=== PATIENT | male | born 1955 | race African-American/Black ===

== ENCOUNTER 2019-01-14 17:42 | Emergency (ER) | payer MEDICAID ==
[~2019-01-14] VITALS: Ht 188 cm; Wt 87.1 kg
[2019-01-14] MEDS ORDERED: GABAPENTIN800 MG ORAL (17:51)
--- NOTE | 2019-01-14 18:11 | NUR ---
ED Nurse Note:pt. came with chronic right knee pain
--- NOTE | 2019-01-14 19:34 | Emergency Room Report ---
History of Present Illness General Chief Complaint: Lower Extremity Injury Source: Patient Present Illness HPI 63-year-old male presents to the emergency department complaining of 5 out of 10 in severity pain localized to the right knee with new onset instability. Patient reports pain is been persistent for 5 years however he states instability over the course of the last 2 days. He denies trauma or fall. Reports history of spinal cord injury and takes oxycotin regularly. pt. reports has ortho appt. next week. Denies numbness tingling or loss of sensation or gross motor movements of the extremities, incontinence of bowel or bladder. Denies CP, Palpitations, LOC, AMS, dizziness, Changes in Vision, weakness or a sudden severe headache. Allergies: Coded Allergies: No Known Allergies (Unverified , 01/14/19) Patient History Past Medical History: see triage record Past Surgical History: none Pertinent Family History: none Reviewed Nursing Documentation: PMH: Agreed; PSxH: Agreed Nursing Documentation-PMH Past Medical History: No History, Except For Hx Cardiac Problems: No - spinal cord injury (left side) Review of Systems All Other Systems: negative except mentioned in HPI Physical Exam Vital Signs Date Time Temp Pulse Resp B/P (MAP) Pulse Ox O2 Delivery O2 Flow Rate FiO2 01/14/19 17:49 98.4 72 18 136/76 97 Room Air Sp02 EP Interpretation: reviewed, normal General Appearance: no apparent distress, alert, GCS 15, non-toxic Head: normocephalic, atraumatic Eyes: bilateral eye normal inspection, bilateral eye PERRL ENT: hearing grossly normal, normal voice Neck: full range of motion Respiratory: lungs clear, normal breath sounds, speaking full sentences Cardiovascular #1: regular rate, rhythm Musculoskeletal: normal range of motion, tender - anterior and posterior right knee, mild swelling, no erythema, no significant increased laxity on exam. Neurologic: alert, oriented x3, responsive, motor strength/tone normal, sensory intact, speech normal, other - compensatory gait using cane, grossly normal Psychiatric: judgement/insight normal Skin: normal color, no rash, warm/dry, well hydrated Medical Decision Making PA Attestation Dr. Love is my supervising Physician whom patient management has been discussed with. Diagnostic Impression: Primary Impression: Knee pain, right Qualified Codes: M25.561 - Pain in right knee Additional Impression: Abnormal x-ray ER Course 63-year-old male presents to the emergency department complaining of 5 out of 10 in severity pain localized to the right knee with new onset instability. Patient reports pain is been persistent for 5 years however he states instability over the course of the last 2 days. He denies trauma or fall. Reports history of spinal cord injury and takes oxycotin regularly. pt. reports has ortho appt. next week. Denies numbness tingling or loss of sensation or gross motor movements of the extremities, incontinence of bowel or bladder. Denies CP, Palpitations, LOC, AMS, dizziness, Changes in Vision, weakness or a sudden severe headache. Ddx considered but are not limited to Fracture, dislocation, contusion, Sprain/ Strain/Spasm, Neoplastic mets. Vital signs: are WNL, pt. is afebrile H&PE are most consistent with musculoskeletal injury will perform imaging to r/ o fractures/dislocations. ORDERS: - X-ray Right knee 3 views - negative for fx, Dislocation, or significant soft tissue injury, MULTIPLE ABNORMAL CALCIFICATIONS per preliminary read in ED, and signed by DAVID Wayne, my supervising physician has reviewed, and agrees with my interpretation. ED INTERVENTIONS: --Knee Immobilizer splint applied to the Right Knee by plasma center technician. Pt. remains neurovascularly intact. --Patient is provided with crutches and instructed on their use --Past with this patient that there is abnormalities on his x-rays give him a copy and explained to him that he needs to follow-up with an nuclear weapons specialist. Patient states she has an appointment next week I discussed with this patient that he needs to inform his doctor of these findings. DISCHARGE: At this time pt. is stable for d/c to home. Will provide printed patient care instructions, and any necessary prescriptions. Care plan and follow up instructions have been discussed with the patient prior to discharge. Other X-Ray Diagnostic Results Other X-Ray Diagnostic Results : X-Ray ordered: Right Knee # of Views/Limited Vs Complete: 3 View Indication: Pain EP Interpretation: Yes DAVID Xray: Interpretation reviewed, by supervising MD, and agrees with findings. Interpretation: no dislocation, no soft tissue swelling, no fractures, other - MULTIPLE ABNORMAL CALCIFICATIONS Impression: Other - Abnormal: MULTIPLE ABNORMAL CALCIFICATIONS Electronically Signed by: Leia Wayne PA-C Last Vital Signs Date Time Temp Pulse Resp B/P (MAP) Pulse Ox O2 Delivery O2 Flow Rate FiO2 01/14/19 17:49 98.4 72 18 136/76 97 Room Air Disposition: HOME, SELF-CARE Condition: Stable Referrals: [facility],REFERRING (PCP) Patient Instructions: Knee Pain, [id number] Additional Instructions: Take all previously prescribed medications as directed. Follow up with an AUTOMOBILE MECHANIC in 3-5 days, even if your symptoms have resolved. ABNORMALITY SEEN ON KNEE X-RAY I --Please review list of primary care clinics, if you do not already have a primary care provider who can give you an Orthopedic Referral. Return sooner to ED if new symptoms occur, or current symptoms become worse. - Please note that this Emergency Department Report was dictated using DHgateg[employer] elevator clerk technology software, occasionally this can lead to erroneous entry secondary to interpretation by the dictation equipment. Leia Wayne Jan 14, 2019 19:34
[2019-01-14 19:40] VITALS: BP 128/71
--- NOTE | 2019-01-14 19:50 | NUR ---
ED Nurse Note: PT BEING D/C TO HOME, PT GIVEN CRUTCHES WITH CRUTCH TRAINING, KNEE BRACE APPLIED ALSO,TOLERATED WELL AND PROPER RETURN DEMONSTRATION USED, PT ALSO RE-VERBALIZES SAFETY MEASURES, PT GIVEN F/U INFO, AFTER CARE INSTRUCTIONS AND MD REFERRAL INFO, PT LEAVING WITH NAD NOTED.
--- NOTE | 2019-01-15 11:01 | Diagnostic Imaging Report ---
Indication: Knee pain Technique: 3 views of the right knee Comparison: None Findings: No acute fractures. No dislocations. There is degenerative joint space narrowing of the medial and patellofemoral joint compartment. Extensive calcifications are seen in the anterior knee joint, posterior knee joint, suprapatellar bursa, and posterior to the knee joint, appearance of which are consistent with multiple synovial osteochondromas. No definite effusion Impression: No acute bony trauma Evidence of extensive synovial osteochondromatosis Degenerative changes as described
== END 2019-01-14 19:56 | disposition home or self-care (01) ==
LOC: EMR 18:15
DX: M25.561 Pain in right knee (principal); R93.7 Abnormal findings on diagnostic imaging of other parts of musculoskeletal system
CPT/HCPCS: 29505; 99283

== ENCOUNTER 2019-03-02 04:15 | Emergency (ER) | payer MEDICAID ==
[~2019-03-02] VITALS: Ht 188 cm; Wt 88.0 kg
[~2019-03-02 04:15] MED LIST: GABAPENTIN800 MG ORAL
[2019-03-02] MEDS ORDERED: BACLOFEN10 MG ORAL (04:24)
--- NOTE | 2019-03-02 04:40 | NUR ---
ED Nurse Note: Patient walked in to ER by him self, c/o right foot pain over the week. AAO x4, VSS at this time, skin is dry, intact, warm to touch.
[2019-03-02] MEDS ORDERED: HYDROcodone/Acetamin 5/325 tab ORAL ONE (04:45)
[2019-03-02] MEDS ORDERED: OXYCODONE HCL30 MG ORAL (04:47)
--- NOTE | 2019-03-02 04:47 | Emergency Room Report ---
History of Present Illness General Chief Complaint: Pain Source: Patient Present Illness HPI This is a 63-year-old male with a history of chronic back and knee pain. He presents with chief complaint of right leg pain but mostly to his knee. This is a chronic problem. Worse because he is out of his oxycodone. No nausea no vomiting. No fever chills. Pain is 9 out of 10. Worse with walking. Denies any other complaint. No new trauma. He told that he need a knee replacement but is reluctant. Allergies: Coded Allergies: No Known Allergies (Unverified , 01/14/19) Patient History Past Medical History: see triage record, old chart reviewed Past Surgical History: other Pertinent Family History: none Social History: Denies: smoking Immunizations: other Reviewed Nursing Documentation: PMH: Agreed; PSxH: Agreed Review of Systems Eye: Denies: eye pain, blurred vision ENT: Denies: ear pain, nose congestion, throat swelling Respiratory: Denies: cough, shortness of breath Cardiovascular: Denies: chest pain, palpitations Gastrointestinal: Denies: abdominal pain, diarrhea, nausea, vomiting Musculoskeletal: Reports: joint pain; Denies: back pain Skin: Denies: rash Neurological: Denies: headache, numbness Endocrine: Denies: increased thirst, increased urine Hematologic/Lymphatic: Denies: easy bruising All Other Systems: negative except mentioned in HPI Physical Exam Vital Signs Date Time Temp Pulse Resp B/P (MAP) Pulse Ox O2 Delivery O2 Flow Rate FiO2 03/02/19 04:19 98.2 55 18 128/82 96 Room Air vitals normal Sp02 EP Interpretation: reviewed, normal General Appearance: well appearing, no apparent distress, alert Head: normocephalic, atraumatic Eyes: bilateral eye PERRL, bilateral eye EOMI ENT: hearing grossly normal, normal pharynx Neck: full range of motion, supple, no meningismus Respiratory: chest non-tender, lungs clear, normal breath sounds Cardiovascular #1: regular rate, rhythm, no murmur Gastrointestinal: normal bowel sounds, non tender, no mass, no organomegaly, no bruit, non-distended Musculoskeletal: back normal, normal range of motion, other - Right knee with degenerative changes. No redness or warmth. Neurologic: alert, oriented x3 Psychiatric: mood/affect normal Skin: warm/dry Medical Decision Making Diagnostic Impression: Primary Impression: Degenerative arthritis of right knee Qualified Codes: M17.11 - Unilateral primary osteoarthritis, right knee ER Course Patient with severe degenerative changes of his right knee. No evidence of any fracture dislocation. He will probably need a knee replacement. No need for x- ray or MRI. We'll discharge home. Last Vital Signs Date Time Temp Pulse Resp B/P (MAP) Pulse Ox O2 Delivery O2 Flow Rate FiO2 03/02/19 04:19 98.2 55 18 128/82 96 Room Air Status: improved Disposition: HOME, SELF-CARE Condition: Stable Scripts Oxycodone Hcl (OXYCODONE HCL) 30 Mg Tablet 30 MG ORAL TID PRN for For Pain, #15 TAB Prov: Juan Barber MD 03/02/19 Referrals: [facility],REFERRING (PCP) Additional Instructions: Follow-up with your pain specialist for refill your medication. Follow-up with your doctor within a week for referral to see orthopedic doctor. You may need a knee replacement. Juan Barber MD Mar 02, 2019 04:47
[2019-03-02 04:49] VITALS: BP 128/82
[2019-03-02 04:57] VITALS: BP 128/82
--- NOTE | 2019-03-02 04:58 | NUR ---
ED Nurse Note: Pt cleared by health care Provider for discharge. DC instructions/prescription was given and explained to pt and verbalized understanding of teachings. All medical deviecs such as ID band removed. Pt is AAO x4, ambulatory and left with all personal belongings.
[2019-08-02] MEDS ORDERED: NORCO 5-325 TA1 EACH ORAL (14:04)
[2019-08-02] MEDS ORDERED: ALBUTEROL2.5 MG/3 M HHN (17:07)
[2019-08-02] MEDS ORDERED: PREDNISONE20 MG ORAL (17:07)
== END 2019-03-02 05:04 | disposition home or self-care (01) ==
LOC: EMR 04:35
DX: M17.11 Unilateral primary osteoarthritis, right knee (principal)
CPT/HCPCS: 99282

== ENCOUNTER 2020-11-25 08:58 | Emergency (ER) | payer MEDICAID, OTHER ==
[~2020-11-25] VITALS: Ht 185.4 cm; Wt 90.7 kg
[~2020-11-25 08:58] MED LIST changes: +ALBUTEROL2.5 MG/3 M HHN; +BACLOFEN10 MG ORAL; +NORCO 5-325 TA1 EACH ORAL; +OXYCODONE HCL30 MG ORAL; +PREDNISONE20 MG ORAL
[2020-11-25 09:02] VITALS: BP 128/88
[2020-11-25 09:08] VITALS: BP 128/88
--- NOTE | 2020-11-25 09:10 | NUR ---
ED Nurse Note: pt aaox4. ambulatory. Pt walked in c/o pain and swelling on LT side of head since 3 days. PT stated hx of halos placed for surgery in january 2005.
--- NOTE | 2020-11-25 09:10 | NUR ---
Nurse Note: Pt walked in c/o pain and swelling on LT side of head since 3 days. PT stated hx of halos placed for surgery in january 2005. Skin intact, no puss, no drainaged noted. PT denies trauma. Tenderness around area. PT stated unk cause.
--- NOTE | 2020-11-25 09:48 | Emergency Room Report ---
History of Present Illness General Chief Complaint: Headache Source: Patient Present Illness HPI Patient presents with 3 days of swelling and tenderness in the left jewish area. It is an area where he had a halo 5 years ago. He denies any trauma. There is no fever or chills. He rates the pain 7/10 at this time. It is achy and tender to palpation. His last tetanus was less than 10 years ago. 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 This leads to problems with his knee and also makes his scoliosis worse. He denies any numbness. He occasionally has vertigo but this is treated with Antivert. Patient denies exposure to Covid positive contacts although his son works and he lives with his son. The patient has a history of COPD. He denies any wheezing or shortness of breath at this time. He uses an inhaler. No sore throat, chest pain, palpitations, nausea, vomiting, diarrhea, dysuria, abdominal pain, depression, anxiety, visual changes. 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 Patient History Past Medical History: see triage record, other - scoleosis Past Surgical History: other - C spine injury, amputation R great toe Social History: Reports: smoking, drug use - THC Social History Narrative Lives with his son Reviewed Nursing Documentation: PMH: Agreed; PSxH: Agreed Review of Systems All Other Systems: negative except mentioned in HPI Physical Exam Vital Signs Date Time Temp Pulse Resp B/P (MAP) Pulse Ox O2 Delivery O2 Flow Rate FiO2 11/25/20 09:02 97.5 55 16 128/88 98 Room Air Sp02 EP Interpretation: reviewed, normal General Appearance: well appearing, no apparent distress, GCS 15 Head: normocephalic, other - Tender nodule left jewish area Eyes: bilateral eye normal inspection, bilateral eye PERRL, bilateral eye EOMI ENT: moist mucus membranes Respiratory: chest non-tender, lungs clear, normal breath sounds Cardiovascular #1: regular rate, rhythm, other - Area of tenderness distant from temporal artery Gastrointestinal: normal inspection Genitourinary: no CVA tenderness Musculoskeletal: other - Walks with a limp, amputated great toe right foot Neurologic: alert, motor strength/tone normal, oriented x3, sensory intact, grossly normal Psychiatric: mood/affect normal Skin: normal color, other - Slight erythema left anterior temporal area just posterior to the halo scar, no fluctuance Medical Decision Making Diagnostic Impression: Primary Impression: Cellulitis Qualified Codes: L03.211 - Cellulitis of face ER Course Patient presents with tender area of the skin left jewish area. Differential includes cellulitis, abscess, temporal arteritis amongst others. Based on exam the diagnosis is clinical. The patient is nontoxic at this time. Oral antibiotics and topical antibiotics are indicated. Tylenol will be administered. Patient's tetanus is up-to-date. Patient is stable for outpatient observation and treatment. Last Vital Signs Date Time Temp Pulse Resp B/P (MAP) Pulse Ox O2 Delivery O2 Flow Rate FiO2 11/25/20 10:17 97.7 11/25/20 10:15 60 16 124/86 98 Room Air Status: improved Disposition: HOME, SELF-CARE Condition: Improved Scripts Meclizine Hcl* (MECLIZINE*) 25 Mg Tablet 25 MG ORAL THREE TIMES A DAY, #20 TAB Prov: Albino Rivas MD 11/25/20 Bacitracin (Bacitracin) 28.4 Gm Oint...g. 1 APPLIC TOPIC BID, #28 GM Prov: Albino Rivas MD 11/25/20 Acetaminophen (Tylenol) 325 Mg Tablet 650 MG ORAL Q6H PRN for Prn Pain/Headache/Temp > 101, #20 TAB 0 Refills Prov: Albino Rivas MD 11/25/20 Trimethoprim/Sulfamethoxazole 160/800* (BACTRIM DS TABLET*) 1 Each Tablet 1 TAB ORAL Q12H, #14 TAB 0 Refills Prov: Albino Rivas MD 11/25/20 Referrals: NON PHYSICIAN (PCP) Albino Rivas MD Nov 25, 2020 09:48
[2020-11-25] MEDS ORDERED: TYLENOL325 MG ORAL (09:50)
[2020-11-25] MEDS ORDERED: BACTRIM DS TAB1 EAC1 ORAL (09:50)
[2020-11-25] MEDS ORDERED: BACITRACIN15 GM TOPIC (09:50)
[2020-11-25] MEDS ORDERED: Bactrim-DS 1 tab ORAL ONE (10:00)
[2020-11-25] MEDS ORDERED: Bacitracin Oint UD TOPIC ONE (10:00)
[2020-11-25] MEDS ORDERED: Acetaminophen 500mg (ES) tab ORAL ONE (10:00)
[2020-11-25] MEDS ORDERED: MECLIZINE HCL25 MG ORAL (10:12)
[2020-11-25 10:15] VITALS: BP 124/86
--- NOTE | 2020-11-25 10:15 | NUR ---
ED Nurse Note: Pt cleared by health care Provider for discharge. DC instructions/prescription was given and explained to pt and verbalized understanding of teachings. Instructed pt to follow up with PCP within one week. All medical deviecs such as ID band removed. Pt is AAO x4, ambulatory and left with all personal belongings.
== END 2020-11-25 10:15 | disposition home or self-care (01) ==
LOC: EMR 09:36
DX: L03.211 Cellulitis of face (principal); M41.9 Scoliosis, unspecified; J44.9 Chronic obstructive pulmonary disease, unspecified; F12.90 Cannabis use, unspecified, uncomplicated; Z89.421 Acquired absence of other right toe(s)
CPT/HCPCS: 99282

== ENCOUNTER 2021-02-02 08:51 | Emergency (ER) | payer MEDICAID ==
[~2021-02-02 08:51] MED LIST changes: +BACITRACIN15 GM TOPIC; +BACTRIM DS TAB1 EAC1 ORAL; +MECLIZINE HCL25 MG ORAL; +TYLENOL325 MG ORAL
--- NOTE | 2021-02-02 12:12 | Emergency Room Report ---
History of Present Illness General Chief Complaint: To Be Triaged Present Illness Allergies: Coded Allergies: No Known Allergies (Unverified , 01/14/19) COVID-19 Screening Contact w/high risk pt: No Experienced COVID-19 symptoms?: No Medical Decision Making Diagnostic Impression: Primary Impression: Patient left without being seen ER Course Patient left without being seen Status: unchanged Disposition: LEFT W/OUT BEING SEEN Condition: Stable Referrals: [facility],REFERRING (PCP) Harish Lauren MD Feb 02, 2021 12:12
== END 2021-02-02 09:32 | disposition left against medical advice (07) ==
LOC: EMR 09:30
DX: M25.50 Pain in unspecified joint (principal); Z53.21 Procedure and treatment not carried out due to patient leaving prior to being seen by health care provider